=== PATIENT | male | born 1955 | race Caucasian/White ===

== ENCOUNTER → 2021-08-24 | Outpatient (CLI) | payer BC, OTHER ==
[~2021-08-24] MED LIST: ASPIR 8181 MG PO; ASTELIN NARES; ASTEPRO205.5 MCG/ INH; ATORVASTATIN CA40 MG PO; BACTRIM DS TAB1 EACH PO; BENADRYL25 MG PO; CALAN SR180 MG PO; CARVEDILOL12.5 MG PO; CARVEDILOL25 MG PO; CAYENNE450 MG PO; COENZYME Q-1030 MG PO; COQ-10100 MG PO; DEMADEX20 MG PO; DEPO-TESTO200 MG/1 M; DULERA 100 MCG/13 GM INH; FISH OIL 1,001000 M2 PO; FLECAINIDE ACET50 M2 PO; FLONASE 0.05%50 MCG NASAL; GLUCOTROL5 MG PO; JARDIANCE25 MG PO; KEFLEX500 M1 PO; LANTUS SOL100 UNIT/1 SUBQ; LISINOPRIL20 MG PO; NORCO 5-325 TA1 EACH PO; NOVOLOG FL100 UNIT/M SUBQ; OMEPRAZOLE 20 M20 M1 PO; OMEPRAZOLE40 MG PO; SINGULAIR 10 MG10 M1 PO; THERA-M CAPLET1 EAC2 PO; TOPROL XL50 MG PO; TRADJENTA5 MG PO; TRIAMTERENE-HC1 EAC2 PO; TRIGLIDE160 MG PO; TRULICITY1.5 MG/0.5; TRULICITY1.5 MG/0.5 SUBQ; TYLENOL325 MG PO; VASCEPA1 GM PO; VENTOLIN HFA 1818 GM INH; ZANTAC 150MG T150 MG PO; ZYRTEC10 M2 PO; [UNRECOGNIZED DRUG - OTHER] PO
[2021-08-24 12:11] VITALS: BP 143/75
[2021-08-24 14:42] VITALS: BP 128/63
[2021-08-24 14:57] VITALS: BP 133/69
[2021-08-24 15:13] VITALS: BP 155/56
[2021-08-24 15:27] VITALS: BP 133/69
[2021-08-24 15:42] VITALS: BP 127/76
--- NOTE | 2021-08-24 16:57 | CARD ---
[address] [address] CARDIAC CATH REPORT Name: SALAZARJAVAN D [id number] Admission: 08/24/21 Attend Phys: Manoj Humphreys MD Discharge: Date of : 57 Report #: [id number] THIS REPORT FOR: cc: JERMAINE LUNA APRN, ASHLEY APRN Liston, Michael J. MD [facility] ~ APPROVED REPORT Study performed: 08/24/2021 13:18:13 Patient Status: Out-Patient Room #: Event Personnel: Director Risk- Manoj Humphreys RN- Maya Mao Scrub- Alireza Navarrete Monitor- Meghann Cowart Exam: Bi-V Generator Change with new RV Lead Insertion Conscious Sedation Start time: 13:45 End Time: 14:22 Fentanyl 75.0 mcg Versed 3.0 mg Implanted Devices: Bi-V Generator- Biotronik Rivacor 7 HF- T QP SN: [id number] Lead- Biotronik ProMRI S 65 SN:[id number] Explanted Devices: [employer] biventricular ICD pacing generator, serial #[id number]. Procedure The patient underwent informed consent. We discussed the details of the procedure including the risks, which include, but not limited to bleeding, infection, vascular damage, cardiac perforation, and pneumothorax. He understood these risks and was willing to proceed. As such, he was brought to the EP/Cardiac Catheterization laboratory in a fasting and sedated state and prepped and draped in a sterile fashion, received IV antibiotics prior to initiation of the procedure and a venogram was performed showing patency of the left axillary vein. The patient underwent conscious sedation, with no related complications. The patient was brought to the EP/Cardiac Catheterization laboratory and the left chest and shoulder were prepped and draped in a sterile manner. During this case, Fluoroscopy and visipaque 40cc were used for imaging. IV conscious sedation was used [place] [address] CARDIAC CATH REPORT Name: JAVAN LINCOLN Room: [facility]#: [id number] Admission: 08/24/21 Attend Phys: Manoj Humphreys MD Discharge: Date of : 57 Report #: [id number] monitoring and was performed in the presence of a registered nurse who was an independent trained observer other than the physician performing the procedure. The left subclavian region was infiltrated with 2% Lidocaine with Epinephrine subcutaneous anesthesia. A transverse incision was made in the left upper chest cavity. The subcutaneous pocket was formed via blunt dissection. Percutaneous venous access was achieved and an introducer sheath was inserted into the left Subclavian vein. Utilizing fluoroscopic guidance, the ventricular lead wire was advanced over the wires and positioned in the right atria and right ventricle respectively. Capturing and sensing thresholds were verified. Electrode Parameters P Wave: 4.4 mV R Wave: 7.8 mV Atrial Threshold: 1.1 V at 0.40 ms Ventricular Threshold: 0.9 V at 0.40 ms Atrial Resistance: 440 ohms Ventricular Resistance: 720 ohms LV lead sensing greater than 20 mV. Threshold 1.3 V at 0.40 ms. Pacing impedance 723 ohms. Generator Change The generator change was then secured using 0 silk sutures. The subcutaneous pocket was irrigated with ancef antibiotic solution.A new lead was inserted/positioned into the right ventricle. The lead was attached to the appropriate receptacle on the new pulse generator and setscrews firmly tightened to insure adequate contact and stability. The lead and pulse generator were placed into the subcutaneous pocket. Sharp and sponge counts were confirmed to be correct. At this time the pocket was closed subcutaneously with a 2.0 Vicryl and the skin was closed with a 4.0 Vicryl. The operative site was dressed in sterile fashion with Benzoin spray, Steri strips, Telfa, and tegaderm and the patient was transferred to the floor in stable condition. Complications The patient tolerated the procedure well and there were no complications associated with the procedure. Findings Specimens Removed: No Estimated Blood Loss: 5 [place] [address] CARDIAC CATH REPORT Name: JAVAN LINCOLN Room: [facility]#: [id number] Admission: 08/24/21 Attend Phys: Manoj Humphreys MD Discharge: Date of : 57 Report #: [id number] Conclusion 1. Biventricular ICD pacing generator at elective replacement. 2. RV pacing ICD lead dysfunctional. 3. Successful replacement of biventricular ICD pacing generator. 4. Placement of a new right ventricular pacing ICD lead. Recommendations 1. Follow-up site check in 1 week. 2. Follow device interrogation in 1 month. <ELECTRONICALLY SIGNED> By: Manoj Humphreys MD, [facility] 08/24/211656 56 56Michelen Humphreys MD, [facility] /INF
== END | disposition home or self-care (01) ==
LOC: M.CL 11:36
PROVIDERS: ATTEND Internal Medicine Cardiovascular Disease
DX: Z45.02 Encounter for adjustment and management of automatic implantable cardiac defibrillator (principal); T82.118A Breakdown (mechanical) of other cardiac electronic device, initial encounter; Z79.899 Other long term (current) drug therapy; Z88.8 Allergy status to other drugs, medicaments and biological substances; Y83.8 Other surgical procedures as the cause of abnormal reaction of the patient, or of later complication, without mention of misadventure at the time of the procedure